=== PATIENT | male | born 1990 | race Hispanic/Latino ===

== ENCOUNTER 2022-08-15 08:46 | Emergency (ER) | payer OTHER ==
[~2022-08-15] VITALS: Ht 188 cm; Wt 105.0 kg
[2022-08-15 08:54] VITALS: BP 133/93
[2022-08-15 09:01] VITALS: BP 148/101
[2022-08-15 09:30] VITALS: BP 141/102
[2022-08-15] MEDS ORDERED: CYCLOBENZAPRINE10 MG PO (12:05)
[2022-08-15] MEDS ORDERED: MOTRIN800 MG PO (12:05)
[2022-08-15 12:13] VITALS: BP 141/102
== END 2022-08-15 12:26 | disposition home or self-care (01) | DRG 914 ==
LOC: ED 08:46
DX: T14.8XXA Other injury of unspecified body region, initial encounter (principal); M54.50 Low back pain, unspecified; V68.5XXA Driver of heavy transport vehicle injured in noncollision transport accident in traffic accident, initial encounter